=== PATIENT | male | born 1960 | race Caucasian/White ===

== ENCOUNTER 2016-08-26 03:47 | Inpatient (IN) | payer MEDICAID ==
[2016-08-26] VITALS (37 sets, daily range): BP systolic 96–115; BP diastolic 50–93
[~2016-08-26] VITALS: Ht 172.7 cm; Wt 77.4 kg
[2016-08-26 04:47] LABS: Basophils # (auto) 0 uL; Basophils % (auto) 0.3 % (0.0-2.0); Eosinophils # (auto) 0 uL; Hematocrit 45.6 % (41.0-53.0); Hemoglobin 14.9 g/dL (13.5-17.5); Lymphocytes # (auto) 1.1 uL; Lymphocytes % (auto) 7.6 % (10.0-50.0); Mean Corpuscular Hemoglobin 31.3 pg (28.0-32.0); Mean Corpuscular Hgb Conc. 32.8 g/dL (32.0-36.0); Mean Corpuscular Volume 95.6 fL (80.0-100.0); Mean Platelet Volume 8.2 fL (7.4-10.4); Monocytes # (auto) 1.6 uL; Monocytes % (auto) 10.7 % (0.0-12.0); Neutrophils # (auto) 11.8 uL; Neutrophils % (auto) 81.4 % (37.0-80.0); Platelet Count (auto) 271 10^3/uL (140-450); Red Cell Distribution Width 13.7 % (11.6-16.0); White Blood Cell 14.6 10^3/uL (4.4-10.8)
[2016-08-26 05:06] LABS: Albumin 3.8 g/dL (3.4-5.0); Calcium 8.7 mg/dL (8.5-10.1); Potassium 3.9 mmol/L (3.5-5.1)
[2016-08-26 05:09] LABS: Bilirubin, Total 1.2 mg/dL (0.2-1.0); Total Protein 7.5 g/dL (6.4-8.2)
[2016-08-26 05:13] LABS: Temperature: 21.1 C (20.0-25.0)
[2016-08-26] MEDS ORDERED: NITROGLYCERIN 2% OINT 1GM PKG TD ONE (05:45)
[2016-08-26] MEDS: ENOXAPARIN SOD 100 MG/1 ML SYRINGE SC ONE ×2 (05:45→05:46)
[2016-08-26] MEDS ORDERED: ONDANSETRON HCL 4 MG/2 ML VIAL IV ONE (06:00)
[2016-08-26] MEDS ORDERED: MORPHINE SULFATE 4 MG/ML SYRG IV ONE (06:00)
[2016-08-26] MEDS ORDERED: HEPARIN 1,000 UNITS/ml 1ML VIAL IV ONE ×2 (06:00→07:00)
[2016-08-26] MEDS ORDERED: HEPARIN SODIUM (PORCINE) 5000 UNITS/ML 1ML VIAL IV ONE (06:15)
[2016-08-26] MEDS: HEPARIN DRIP/D5W 100UNITS/ML 250 ML IV SCH ×2 (06:48→08:54)
[2016-08-26 06:52] LABS: INR 1.05 (0.9-1.15); Partial Thromboplastin Time 27.5 sec (22.64-33.71); Prothrombin Time 10.8 sec (9.37-12.3)
[2016-08-26] MEDS: SODIUM CHLORIDE 0.9% 1,000 ML IV SCH ×3 (07:05→23:00)
[2016-08-26] MEDS ORDERED: LORazepam 0.5 MG TAB PO PRN (07:15)
[2016-08-26] MEDS ORDERED: LACTULOSE 20Gm/30ML SOLN PO PRN (07:15)
[2016-08-26] MEDS ORDERED: HYDROcodone-ACET 5/325MG TAB PO PRN (07:15)
[2016-08-26] MEDS ORDERED: TEMAZEPAM 15 MG CAP PO PRN (07:15)
[2016-08-26] MEDS ORDERED: MORPHINE SULF INJ 2 MG/ML SYRINGE 1ML IV PRN (07:15)
[2016-08-26] MEDS ORDERED: ACETAMINOPHEN 500 MG TAB PO PRN (07:15)
[2016-08-26] MEDS ORDERED: NITROGLYCERIN 0.4 MG SL TAB SL PRN (07:15)
[2016-08-26] MEDS ORDERED: HEPARIN SODIUM (PORCINE) 5000 UNITS/ML 1ML VIAL ONE (08:47)
[2016-08-26] MEDS ORDERED: ASPirin 81 mg TAB PO SCH (10:00)
[2016-08-26] MEDS: MORPHINE SULF INJ 2 MG/ML SYRINGE 1ML IV PRN (11:01)
[2016-08-26] MEDS: NITROGLYCERIN 0.2MG/HR TOPICAL PATCH TD SCH (11:02)
[2016-08-26] MEDS: PROMETHAZINE HCL 25 MG/ML 1ML IV PRN (11:02)
[2016-08-26] MEDS: METOPROLOL TARTRATE 25 MG TAB PO SCH ×2 (11:03→21:34)
[2016-08-26] MEDS ORDERED: IODIXANOL 320MG/ML 100ML BTL IV ONE (15:12)
[2016-08-26] MEDS ORDERED: LIDOCAINE 2%HCL (LOCAL ANESTH.) INJ 20ML MDV ONE (15:12)
[2016-08-26 15:37] LABS: Prothrombin Time 12.2 sec (9.37-12.3)
[2016-08-26 15:40] LABS: INR 1.18 (0.9-1.15)
[2016-08-26 15:41] LABS: Partial Thromboplastin Time 131.9 sec (22.64-33.71)
[2016-08-26] MEDS ORDERED: fentaNYL CITRATE 100 MCG/2 ML VL ONE (17:14)
[2016-08-26] MEDS ORDERED: SODIUM CHL 0.9% 50 ML ONE ×2 (17:14→18:20)
[2016-08-26] MEDS ORDERED: ANGIOMAX 250 MG VIAL IV ONE ×2 (17:14→18:19)
[2016-08-26] MEDS ORDERED: MIDAZOLAM HCL 1MG/1ML-2 ML VIAL ONE (17:14)
[2016-08-26] MEDS ORDERED: EPTIFIBATIDE INJ (2MG/ML) 10ML VIAL IV ONE (17:15)
[2016-08-26] MEDS ORDERED: ASPirin 81 mg TAB ONE (18:28)
[2016-08-26] MEDS ORDERED: CLOPIDOGREL 300 MG TAB ONE (18:28)
[2016-08-26] MEDS ORDERED: ASPirin-EC 81 mg tab PO ONE (18:33)
[2016-08-26] MEDS ORDERED: SODIUM CHLORIDE 0.9% 1,000 ML IV SCH (19:00)
[2016-08-26] MEDS ORDERED: ANGIOMAX 250 MG in SODIUM CHL 0.9% 50 ML IV ONE (20:30)
[2016-08-26] MEDS: ATORVASTATIN 20 MG TAB PO SCH (21:34)
[2016-08-26 23:15] LABS: Partial Thromboplastin Time 58.3 sec (22.64-33.71)
[2016-08-26 23:20] LABS: INR 1.34 (0.9-1.15); Prothrombin Time 13.8 sec (9.37-12.3)
[2016-08-27] VITALS (57 sets, daily range): BP systolic 84–138; BP diastolic 29–85
[2016-08-27 04:01] LABS: Basophils # (auto) 0 uL; Basophils % (auto) 0.1 % (0.0-2.0); Eosinophils # (auto) 0 uL; Hematocrit 40.5 % (41.0-53.0); Lymphocytes # (auto) 1.3 uL; Lymphocytes % (auto) 10.2 % (10.0-50.0); Mean Corpuscular Hgb Conc. 32.1 g/dL (32.0-36.0); Mean Corpuscular Volume 96.4 fL (80.0-100.0); Mean Platelet Volume 8.9 fL (7.4-10.4); Monocytes # (auto) 1.3 uL; Monocytes % (auto) 10.6 % (0.0-12.0); Neutrophils # (auto) 9.8 uL; Neutrophils % (auto) 79.1 % (37.0-80.0); Platelet Count (auto) 196 10^3/uL (140-450); Red Cell Distribution Width 13.6 % (11.6-16.0); White Blood Cell 12.4 10^3/uL (4.4-10.8)
[2016-08-27 04:16] LABS: Bilirubin, Total 1.3 mg/dL (0.2-1.0); Calcium 7.9 mg/dL (8.5-10.1); Potassium 3.5 mmol/L (3.5-5.1); Total Protein 6.6 g/dL (6.4-8.2)
[2016-08-27] MEDS: SODIUM CHLORIDE 0.9% 1,000 ML IV SCH ×2 (06:40→15:05)
[2016-08-27] MEDS: PROMETHAZINE HCL 25 MG/ML 1ML IV PRN (09:51)
[2016-08-27] MEDS: MORPHINE SULF INJ 2 MG/ML SYRINGE 1ML IV PRN ×4 (09:51→23:23)
[2016-08-27] MEDS: METOPROLOL TARTRATE 25 MG TAB PO SCH ×2 (10:06→22:45)
[2016-08-27] MEDS: ASPirin 325 MG TAB PO SCH (10:06)
[2016-08-27] MEDS: CLOPIDOGREL BISULFATE 75 MG TAB PO SCH (10:07)
[2016-08-27] MEDS: NITROGLYCERIN 0.2MG/HR TOPICAL PATCH TD SCH (10:07)
[2016-08-27] MEDS ORDERED: LIDOCAINE 2%HCL (LOCAL ANESTH.) INJ 20ML MDV ONE (11:46)
[2016-08-27] MEDS ORDERED: IODIXANOL 320MG/ML 100ML BTL IV ONE (11:46)
[2016-08-27] MEDS ORDERED: MIDAZOLAM HCL 1MG/1ML-2 ML VIAL ONE (11:58)
[2016-08-27] MEDS ORDERED: ANGIOMAX 250 MG VIAL IV ONE (11:58)
[2016-08-27] MEDS ORDERED: fentaNYL CITRATE 100 MCG/2 ML VL ONE (11:58)
[2016-08-27] MEDS ORDERED: SODIUM CHL 0.9% 50 ML ONE (11:59)
[2016-08-27] MEDS ORDERED: VANCOMYCIN 1GM/250ML D5W 250 ML IV ONE ×2 (12:12→12:30)
[2016-08-27] MEDS ORDERED: VANCOMYCIN 1GM/250ML D5W 250 ML IV SCH (22:00)
[2016-08-27] MEDS: ATORVASTATIN 20 MG TAB PO SCH (22:45)
[2016-08-28] VITALS (55 sets, daily range): BP systolic 97–130; BP diastolic 46–92
[2016-08-28 03:42] LABS: Basophils # (auto) 0 uL; Eosinophils # (auto) 0 uL; Eosinophils % (auto) 0.1 % (0.0-7.0); Hematocrit 36.5 % (41.0-53.0); Hemoglobin 11.7 g/dL (13.5-17.5); Lymphocytes % (auto) 9.7 % (10.0-50.0); Mean Corpuscular Hgb Conc. 32.1 g/dL (32.0-36.0); Mean Corpuscular Volume 96.6 fL (80.0-100.0); Mean Platelet Volume 8.4 fL (7.4-10.4); Monocytes # (auto) 1.1 uL; Monocytes % (auto) 11.1 % (0.0-12.0); Neutrophils # (auto) 7.9 uL; Neutrophils % (auto) 79.1 % (37.0-80.0); Platelet Count (auto) 201 10^3/uL (140-450); Red Cell Distribution Width 13.6 % (11.6-16.0)
[2016-08-28 04:02] LABS: BUN/Creatinine Ratio 13.8; Calcium 7.8 mg/dL (8.5-10.1); Potassium 3.3 mmol/L (3.5-5.1)
[2016-08-28] MEDS: MORPHINE SULF INJ 2 MG/ML SYRINGE 1ML IV PRN ×2 (06:47→11:22)
[2016-08-28] MEDS ORDERED: POTASSIUM CHL 10% (20 MEQ/15ML) ORAL SOLN PO ONE (07:45)
[2016-08-28] MEDS: METOPROLOL TARTRATE 25 MG TAB PO SCH ×2 (11:17→22:00)
[2016-08-28] MEDS: LISINOPRIL 5 MG TAB PO SCH (11:17)
[2016-08-28] MEDS: CLOPIDOGREL BISULFATE 75 MG TAB PO SCH (11:18)
[2016-08-28] MEDS: ASPirin 325 MG TAB PO SCH (11:18)
[2016-08-28] MEDS: NITROGLYCERIN 0.2MG/HR TOPICAL PATCH TD SCH (11:21)
[2016-08-28] MEDS: SODIUM CHLORIDE 0.9% 1,000 ML IV SCH ×2 (16:22→16:23)
[2016-08-28] MEDS: ATORVASTATIN 20 MG TAB PO SCH (22:33)
[2016-08-29 05:30] VITALS: BP 115/74
[2016-08-29] MEDS: NITROGLYCERIN 0.2MG/HR TOPICAL PATCH TD SCH (07:01)
[2016-08-29] MEDS: LISINOPRIL 5 MG TAB PO SCH (08:59)
[2016-08-29] MEDS: ASPirin 325 MG TAB PO SCH (08:59)
[2016-08-29] MEDS: CLOPIDOGREL BISULFATE 75 MG TAB PO SCH (08:59)
[2016-08-29 09:00] VITALS: BP 100/66
[2016-08-29] MEDS: METOPROLOL TARTRATE 25 MG TAB PO SCH (09:00)
[2016-08-29 12:25] VITALS: BP 100/60
[2016-08-29] MEDS ORDERED: ASPI-111 PO (12:30)
[2016-08-29] MEDS ORDERED: CLOP75TA28 PO (12:30)
[2016-08-29] MEDS ORDERED: ATOR20TA50 PO (12:30)
[2016-08-29] MEDS ORDERED: MET25T PO (12:30)
[2016-08-29] MEDS ORDERED: LISI-275 PO (12:30)
[2016-08-29 12:53] VITALS: BP 105/69
== END 2016-08-29 14:35 | disposition home or self-care (01) | DRG 174 ==
LOC: ER 03:47 → TELE 03:48 → ICU WEST 09:15 → TELE-EAST 08-28 22:06
PROVIDERS: ADMIT Internal Medicine; ATTEND Hospitalist
PROC: 027036Z Dilation of Coronary Artery, One Artery with Three Drug-eluting Intraluminal Devices, Percutaneous Approach (ICD-10-PCS; principal; 2016-08-26)
PROC: 027034Z Dilation of Coronary Artery, One Artery with Drug-eluting Intraluminal Device, Percutaneous Approach (ICD-10-PCS; 2016-08-26)
PROC: B2111ZZ Fluoroscopy of Multiple Coronary Arteries using Low Osmolar Contrast (ICD-10-PCS; 2016-08-26)
PROC: B41F1ZZ Fluoroscopy of Right Lower Extremity Arteries using Low Osmolar Contrast (ICD-10-PCS; 2016-08-26)
PROC: 4A023N7 Measurement of Cardiac Sampling and Pressure, Left Heart, Percutaneous Approach (ICD-10-PCS; 2016-08-26)
DX: I21.4 Non-ST elevation (NSTEMI) myocardial infarction (principal); I25.82 Chronic total occlusion of coronary artery; I11.9 Hypertensive heart disease without heart failure; E66.9 Obesity, unspecified; F17.200 Nicotine dependence, unspecified, uncomplicated; I25.2 Old myocardial infarction; J98.11 Atelectasis; Z82.49 Family history of ischemic heart disease and other diseases of the circulatory system; Z95.5 Presence of coronary angioplasty implant and graft; Z68.25 Body mass index [BMI] 25.0-25.9, adult; Z71.6 Tobacco abuse counseling; I25.10 Atherosclerotic heart disease of native coronary artery without angina pectoris
CPT/HCPCS: 92928; 92929; 93454; 93458; 96365; 96372; 96375; 99291; G0278; 36415; 71020; 80048; 80053; 80061; 83036; 83735; 83880; 84484; 85025; 85379; 85610; 85652; 85730; 87081; 93005; 93306; 97001; 99152; C1874; J2250; J2405; Q9967

== ENCOUNTER 2018-10-23 14:26 | Emergency (ER) | payer MEDICAID ==
[~2018-10-23] VITALS: Ht 172.7 cm; Wt 77.1 kg
[~2018-10-23 14:26] MED LIST: ASPI-111 PO; ATOR20TA50 PO; CLOP75TA28 PO; LISI-275 PO; MET25T PO
[2018-10-23 15:27] LABS: Basophils # (auto) 0 uL; Basophils % (auto) 0.5 % (0.0-2.0); Eosinophils # (auto) 0.1 uL; Eosinophils % (auto) 1.4 % (0.0-7.0); Hematocrit 42.7 % (41.0-53.0); Hemoglobin 14.5 g/dL (13.5-17.5); Lymphocytes # (auto) 1.4 uL; Lymphocytes % (auto) 15.5 % (10.0-50.0); Mean Corpuscular Hemoglobin 32.3 pg (28.0-32.0); Mean Corpuscular Hgb Conc. 34.1 g/dL (32.0-36.0); Mean Corpuscular Volume 94.7 fL (80.0-100.0); Neutrophils # (auto) 6.5 uL; Neutrophils % (auto) 71.6 % (37.0-80.0); Nucleated Red Blood Cells % 0.1 %; Platelet Count (auto) 240 10^3/uL (140-450); Red Blood Cells 4.51 10^6/uL (4.5-5.90); Red Cell Distribution Width 14.1 % (11.8-14.3)
[2018-10-23] MEDS ORDERED: ASPirin 81 mg TAB PO ONE (15:30)
[2018-10-23] MEDS ORDERED: NITROGLYCERIN 0.4 MG SL TAB SL ONE (15:30)
[2018-10-23 15:40] LABS: Alanine Aminotransferase 29 U/L (16-61); Albumin 3.8 g/dL (3.4-5.0); Anion Gap 4 (5-15); Aspartate Aminotransferase 16 U/L (15-37); Blood Urea Nitrogen 14 mg/dL (7-18); Calcium 9.3 mg/dL (8.5-10.1); Carbon Dioxide 29 mmol/L (21-32); Chloride 106 mmol/L (98-107); GFR African American 82 mL/min; GFR Non-African American 68 mL/min; Glucose 104 mg/dL (74-106); Potassium 3.9 mmol/L (3.5-5.1); Sodium 139 mmol/L (136-145)
[2018-10-23 15:46] LABS: Alkaline Phosphatase 91 U/L (45-117); Bilirubin, Total 0.6 mg/dL (0.2-1.0); Total Protein 7.8 g/dL (6.4-8.2)
[2018-10-23 17:48] VITALS: BP 138/75
== END 2018-10-23 17:49 | disposition home or self-care (01) ==
LOC: ER 14:33
DX: R07.89 Other chest pain (principal); I25.2 Old myocardial infarction; Z86.73 Personal history of transient ischemic attack (TIA), and cerebral infarction without residual deficits; Z98.61 Coronary angioplasty status
CPT/HCPCS: 36415; 71046; 80053; 84484; 85025; 93005